=== PATIENT | male | born 2000 | race Caucasian/White ===

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

== ENCOUNTER 2022-11-11 16:21 | Emergency (ER) | payer MEDICAID ==
[~2022-11-11] VITALS: Ht 167.6 cm; Wt 63.0 kg
[~2022-11-11 16:21] MED LIST changes: +CEPH-558 PO; -CEPH500C3 PO; +IBUP-1492 PO; -IBUP-2070 PO
[2022-11-11] MEDS ORDERED: PERTUSS(ACELL),DIPH,TET VAC/PF 0.5 ML SYRINGE IM. ONE (17:00)
[2022-11-11 17:56] VITALS: BP 114/68
[2022-11-11] MEDS ORDERED: CIPR500T10 PO (17:58)
== END 2022-11-11 18:04 | disposition home or self-care (01) ==
LOC: EMS 16:26
DX: S99.921A Unspecified injury of right foot, initial encounter (principal); X58.XXXA Exposure to other specified factors, initial encounter; Y93.89 Activity, other specified; Y92.89 Other specified places as the place of occurrence of the external cause; Y99.8 Other external cause status
CPT/HCPCS: 90471; 90715; 99283

== ENCOUNTER 2023-10-13 09:43 | Emergency (ER) | payer MEDICAID ==
[~2023-10-13] VITALS: Ht 175.3 cm; Wt 59.1 kg
[~2023-10-13 09:43] MED LIST changes: -CEPH-558 PO; +CIPR500T10 PO; -IBUP-1492 PO
[2023-10-13 09:47] VITALS: BP 116/67; PULSE 62; RESP 16; TEMP 98.2
[2023-10-13] MEDS: KETOROLAC TROMETHAMINE 30 MG/ML VIAL IM ONE (12:05)
[2023-10-13] MEDS ORDERED: IBUP-1492 PO (12:09)
== END 2023-10-13 12:40 | disposition home or self-care (01) ==
LOC: EMS 09:53
DX: M54.6 Pain in thoracic spine (principal)
CPT/HCPCS: 99283; 96372; J1885